=== PATIENT | male | born 1990 | race American Indian/Alaskan Native ===

== ENCOUNTER 2019-10-06 22:59 | Emergency (ER) | payer OTHER ==
[2019-10-06 23:09] VITALS: BP 133/73
== END 2019-10-07 04:05 | disposition left against medical advice (07) ==
LOC: ED 22:59
DX: R50.9 Fever, unspecified (principal); R05 Cough; Z53.21 Procedure and treatment not carried out due to patient leaving prior to being seen by health care provider